=== PATIENT | female | born 1990 | race Caucasian/White ===

== ENCOUNTER 2018-06-30 22:36 | Emergency (ER) | payer SELFPAY ==
[~2018-06-30] VITALS: Ht 157.5 cm; Wt 52.2 kg
[2018-06-30 22:39] VITALS: BP 124/57; PULSE 77; RESP 16; Ht 157.5 cm; Wt 52.2 kg
== END 2018-07-01 00:20 | disposition left against medical advice (07) ==
LOC: FTE 22:36
DX: Z53.21 Procedure and treatment not carried out due to patient leaving prior to being seen by health care provider (principal)